=== PATIENT | female | born 2000 | race Caucasian/White ===

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

== ENCOUNTER 2022-06-18 19:39 | Inpatient (IN) | payer OTHER ==
[~2022-06-18] VITALS: Ht 162.6 cm; Wt 54.4 kg
--- NOTE | 2022-06-18 20:03 | NUR ---
PACIENTE ALERTA Y ACTIVA REFIERE ESTAR EMBARAZADA OSITO NO SABE DE CUANTAS SEMANAS Y ESTA [place].
--- NOTE | 2022-06-18 20:49 | NUR ---
PACIENTE EVALUADA POR DR HAMILTON QUI[place] [facility], SE LE ORIENTA A PACIENTE SOBRE EL MISMO Y VERBALIZA ENTENDER, SE LE COLECTA MUESTRAS BAJO MEDIDAS ASEPTICAS. PENDIENTE SONO
--- NOTE | 2022-06-18 21:01 | NUR ---
PACIENTE ALERTA Y ORIENTADA POR LISHA. SE ORIENTA DE TRATAMIENTO. REFIERE ENTENDER. SE CANALIZA CON MEDIDAS ASEPTICAS CORRESPONDIENTES.
--- NOTE | 2022-06-19 03:31 | NUR ---
PACIENTE CON ORDEN DE IR A CRISTI DE OPERACIONES POR EMBARAZO ECTOPICO. ORDEN DE DR. TOLEDO CUAL REFIERE EL PROCEDIMIENTO SERA DESPUES DE LAS 7AM. PACIENTE SE LE REALIZA ADMINISTRACION DE TERAPIA INTRAVENOSA DE R/L 1000ML BAJANDO A 125ML/HRS, SE TOMARON MUESTRAS DE GISELA BAJO MEDIDAS ASEPTICAS. SE REALIZO PRUEBA DE COVID 19AG, SE ORIENTO SOBRE ORDEN DE NPO, SE REEALIZO MUESTRA DE TIPO Y ROCKY. PACIENTE SE MANTIENE EN OBSERVACION EN ESPERA DE OR.
[2022-06-20] MEDS ORDERED: RHOGAM ULTR1500 UNIT IM (07:31)
[2022-06-21] MEDS ORDERED: IBUPROFEN800 MG PO (08:20)
== END 2022-06-21 13:45 | disposition home or self-care (01) | DRG 819 ==
LOC: ER 19:39 → OB/GYN 06-19 03:35 → SEC-K 06-19 03:35 → OB/GYN 06-19 11:45
PROVIDERS: ADMIT Specialist; ATTEND Specialist
PROC: 0UDB7ZZ Extraction of Endometrium, Via Natural or Artificial Opening (ICD-10-PCS; 2022-06-19)
PROC: 10T20ZZ Resection of Products of Conception, Ectopic, Open Approach (ICD-10-PCS; principal; 2022-06-19 09:00)
DX: O00.102 Left tubal pregnancy without intrauterine pregnancy (principal); Z20.822 Contact with and (suspected) exposure to COVID-19

== ENCOUNTER 2022-09-29 16:35 | Emergency (ER) | payer OTHER ==
[~2022-09-29] VITALS: Ht 162.6 cm; Wt 52.2 kg
[~2022-09-29 16:35] MED LIST changes: +IBUPROFEN800 MG PO
== END 2022-09-29 19:12 | disposition home or self-care (01) ==
LOC: EMR PED 16:35 → ER 16:36 → EMR PED 16:36 → ER 19:12
DX: J03.90 Acute tonsillitis, unspecified (principal); R53.81 Other malaise

== ENCOUNTER 2022-11-01 18:17 | Emergency (ER) | payer OTHER ==
[~2022-11-01] VITALS: Ht 162.6 cm; Wt 52.2 kg
== END 2022-11-01 20:23 | disposition home or self-care (01) ==
LOC: ER 18:17
DX: J10.1 Influenza due to other identified influenza virus with other respiratory manifestations (principal); Z20.822 Contact with and (suspected) exposure to COVID-19

== ENCOUNTER 2024-04-10 19:00 | Emergency (ER) | payer OTHER ==
[~2024-04-10] VITALS: Ht 162.6 cm; Wt 54.4 kg
[2024-04-10 19:13] VITALS: BP 107/67; O2SAT 100
[2024-04-10 23:20] LABS: PH,URINE 5.5 (5.0-8.0); URINE APPEARANCE Clear; URINE BILIRRUBIN Negative (NEGATIVE); URINE BLOOD Negative; URINE COLOR Yellow; URINE GLUCOSE Negative (NEGATIVE); URINE KETONE Trace (NEGATIVE); URINE LEUKOCYTE Negative; URINE NITRATE Negative; URINE PROTEIN Negative (NEGATIVE); URINE UROBILINOGEN 0.2 E.U./dl
[2024-04-10 23:24] LABS: URINE BACTERIA 3348.6 uL (0.0-1933); URINE EPITHELIAL CELLS 66.9 uL (0.0-38.8); URINE WBC 12.8 uL (0.0-23.2)
[2024-04-10 23:34] LABS: URINE CAST 0.29 uL (0.0-1.40); URINE RBC 1.7 uL (0.0-20.8)
== END 2024-04-10 23:03 | disposition left against medical advice (07) ==
LOC: ER 19:02
PROVIDERS: Emergency Medicine
DX: R10.2 Pelvic and perineal pain (principal)

== ENCOUNTER 2024-04-11 11:52 | Emergency (ER) | payer OTHER ==
[~2024-04-11] VITALS: Ht 162.6 cm; Wt 54.4 kg
[2024-04-11 14:35] LABS: PH,URINE 6.5 (5.0-8.0); URINE APPEARANCE Clear; URINE BILIRRUBIN Negative (NEGATIVE); URINE BLOOD Small; URINE COLOR Yellow; URINE GLUCOSE Negative (NEGATIVE); URINE LEUKOCYTE Negative; URINE NITRATE Negative; URINE PROTEIN Trace (NEGATIVE)
[2024-04-11 14:37] LABS: HEMATOCRIT 36.1 % (36.0-45.00); HEMOGLOBIN 12.5 g/dL (12.0-15.00); MEAN CELL VOLUME 85.6 fL (80.00-100.00); MEAN CORPUSCULAR HEMOGLOBIN 29.7 pg (27.00-32.0); MEAN CORPUSCULAR HGB CONC 34.7 g/dl (32.0-36.0); PLATELET COUNT 247 K/uL (150-450); RED BLOOD COUNT 4.21 M/uL (4.00-6.00); RED CELL DISTRIBUTION WIDTH 13.3 % (11.5-14.5)
[2024-04-11 14:39] LABS: URINE BACTERIA 3773.3 uL (0.0-1933); URINE CAST 1.91 uL (0.0-1.40); URINE EPITHELIAL CELLS 61.4 uL (0.0-38.8); URINE WBC 36.4 uL (0.0-23.2)
[2024-04-11 14:55] LABS: URINE KETONE 80 (NEGATIVE)
[2024-04-11 14:56] LABS: URINE MUCUS HEAVY
== END 2024-04-11 16:37 | disposition home or self-care (01) ==
LOC: ER 11:54
PROVIDERS: Emergency Medicine
DX: N93.9 Abnormal uterine and vaginal bleeding, unspecified (principal)

== ENCOUNTER 2024-09-24 22:50 | Emergency (ER) | payer OTHER ==
[~2024-09-24] VITALS: Ht 162.6 cm; Wt 59.0 kg
[2024-09-24] MEDS ORDERED: PRENATABS RX T1 EACH (23:09)
[2024-09-25] MEDS ORDERED: ACETAMINOPHEN 500 MG GEL..CAP PO STA (02:06)
[2024-09-25] MEDS ORDERED: DIPHENHYDRAMINE HCL 12.5 MG/5 ML BLIST.PACK PO STA (02:06)
[2024-09-25 02:46] LABS: COVID-19 AG POSITIVE (NEGATIVE)
[2024-09-25 03:08] LABS: BASO % 0.1 % (0.1-1.2); EOS # 0.02 (0.04-0.54); EOS % 0.3 % (0.7-7.0); LYMPH # 0.48 (1.18-3.74); LYMPH % 7.1 % (19.3-53.1); MEAN PLATELET VOLUME 9.90 fl (9.4-12.4); MONO # 0.46 (0.24-0.82); MONO % 6.8 % (4.7-12.5); NEUT # 5.78 (1.56-6.13); NEUT % 85.3 % (34.0-71.1); RED CELL DISTRIBUTION WIDTH 12.9 % (11.6-14.4)
[2024-09-25] MEDS ORDERED: ZYRTEC10 M3 PO (03:20)
== END 2024-09-25 04:11 ==
LOC: ER 22:50
PROVIDERS: General Practice
DX: Z34.90 Encounter for supervision of normal pregnancy, unspecified, unspecified trimester (principal); Z3A.17 17 weeks gestation of pregnancy; U07.1 COVID-19; R50.9 Fever, unspecified; R51.9 Headache, unspecified

== ENCOUNTER 2024-10-17 14:38 | Outpatient (CLI) | payer OTHER ==
[~2024-10-17 14:38] MED LIST changes: -ANUSOL-HC30 G2 RECTAL
[2024-10-17] MEDS ORDERED: IBUPROFEN800 MG PO (16:00)
[2024-10-17] MEDS ORDERED: ANUSOL-HC30 G2 RECTAL ×2 (16:00)
[2024-10-17 16:08] VITALS: BP 105/65
[2024-10-17 16:14] VITALS: BP 105/65
[2024-10-17 16:56] LABS: BASO % 0.3 % (0.1-1.2); EOS # 0.03 (0.04-0.54); EOS % 0.4 % (0.7-7.0); LYMPH # 0.68 (1.18-3.74); LYMPH % 9.2 % (19.3-53.1); MEAN PLATELET VOLUME 10.20 fl (9.4-12.4); MONO # 0.44 (0.24-0.82); MONO % 5.9 % (4.7-12.5); NEUT # 6.24 (1.56-6.13); NEUT % 83.9 % (34.0-71.1); RED CELL DISTRIBUTION WIDTH 12.9 % (11.6-14.4)
[2024-10-17] MEDS ORDERED: HYDROCORTISONE 2.5% 30 GM TUBE RECTAL SCH (17:00)
[2024-10-17 17:20] VITALS: BP 105/65
== END 2024-10-17 17:27 | disposition home or self-care (01) ==
LOC: OBS/DEL 14:38 → LDR 16:19 → OBS/DEL 17:27
PROVIDERS: ATTEND Specialist
DX: O26.892 Other specified pregnancy related conditions, second trimester (principal); O22.42 Hemorrhoids in pregnancy, second trimester; Z3A.20 20 weeks gestation of pregnancy

== ENCOUNTER → 2024-10-17 | Emergency (ER) | payer OTHER ==
[~2024-10-17] MED LIST changes: +ANUSOL-HC30 G2 RECTAL; +PRENATABS RX T1 EACH; +ZYRTEC10 M3 PO
== END | disposition left against medical advice (07) ==
LOC: ER 14:11
DX: Z53.21 Procedure and treatment not carried out due to patient leaving prior to being seen by health care provider (principal)

== ENCOUNTER 2025-02-11 15:00 | Inpatient (IN) | payer OTHER ==
[~2025-02-11] VITALS: Ht 162.6 cm; Wt 71.7 kg
[~2025-02-11 15:00] MED LIST changes: +ANUSOL-HC30 G2 RECTAL
[2025-03-06] MEDS ORDERED: RINGERS SOLUTION,LACTATED 1,000 ML IV SCH (05:30)
[2025-03-06 05:34] VITALS: BP 101/59
[2025-03-06] MEDS ORDERED: OXYTOCIN 500 ML IV SCH (06:45)
[2025-03-06 07:00] LABS: URINE APPEARANCE Clear; URINE BILIRRUBIN Negative (NEGATIVE); URINE BLOOD Negative; URINE COLOR Yellow; URINE GLUCOSE Negative (NEGATIVE); URINE KETONE Trace (NEGATIVE); URINE LEUKOCYTE Small; URINE NITRATE Negative; URINE PROTEIN Trace (NEGATIVE); URINE UROBILINOGEN 1.0 E.U./dl
[2025-03-06 07:01] LABS: BASO % 0.3 % (0.1-1.2); EOS # 0.09 (0.04-0.54); EOS % 1.1 % (0.7-7.0); LYMPH # 1.89 (1.18-3.74); LYMPH % 24.1 % (19.3-53.1); MEAN PLATELET VOLUME 10.10 fl (9.4-12.4); MONO # 0.70 (0.24-0.82); MONO % 8.9 % (4.7-12.5); NEUT # 5.11 (1.56-6.13); NEUT % 65.1 % (34.0-71.1); RED CELL DISTRIBUTION WIDTH 13.6 % (11.6-14.4)
[2025-03-06 07:03] LABS: URINE BACTERIA 613.1 uL (0.0-1933); URINE EPITHELIAL CELLS 79.0 uL (0.0-38.8); URINE WBC 40.7 uL (0.0-23.2)
[2025-03-06 07:11] LABS: INR < 0.93
[2025-03-06 07:18] LABS: URINE CAST 0.14 uL (0.0-1.40); URINE RBC 1.2 uL (0.0-20.8)
[2025-03-06 07:35] VITALS: BP 111/51
[2025-03-06 07:36] LABS: ALT/SGPT 25.0 U/L (12-78); AST/SGOT 25.0 U/L (15-37); BILIRUBIN TOTAL 0.56 mg/dL (0.3-1.2); BUN CREA RATIO 13.0 (7.0-25.0); CREATININE SERUM 0.4 mg/dL (0.55-1.02); GFR 199.59; GLOBULINA 3.6 G/DL (2.4-3.5); GLUCOSE FASTING 76.0 mg/dL (65-100); OSMOLALITY SERUM 275.0 MOSM/KG (275-295)
[2025-03-06] MEDS ORDERED: MORPHINE SULFATE 4 MG/ML VIAL IV STA (08:08)
[2025-03-06 08:37] VITALS: BP 111/51
[2025-03-06] MEDS ORDERED: CHLORHEXIDINE GLUCONATE 120 ML BOTTLE TOP ONE ×2 (10:52→11:45)
[2025-03-06] MEDS ORDERED: ERYTHROMYCIN BASE OPHT 1GM EACH TUBE OP ONE ×2 (10:52→11:45)
[2025-03-06] MEDS ORDERED: OXYTOCIN 20 UNITS/1000ML RL PIGGYBAG IV ONE (10:52)
[2025-03-06] MEDS ORDERED: LIDOCAINE HCL 1% 10ML VIAL ONE (10:52)
[2025-03-06] MEDS ORDERED: ACETAMINOPHEN 500 MG GEL..CAP PO PRN (11:45)
[2025-03-06] MEDS ORDERED: OXYTOCIN 1,000 ML IV SCH (11:45)
[2025-03-06] MEDS ORDERED: HYDROCORTISONE 2.5% 30 GM TUBE RECTAL SCH (13:00)
[2025-03-06] MEDS ORDERED: BENZOCAINE/MENTHOL 90 ML BOTTLE TOP SCH (13:00)
[2025-03-06 15:28] VITALS: BP 126/78
[2025-03-06 16:00] VITALS: BP 96/46
[2025-03-06 17:13] VITALS: BP 105/69
[2025-03-07 01:32] VITALS: BP 103/68
[2025-03-07 01:34] LABS: BASO % 0.2 % (0.1-1.2); EOS # 0.04 (0.04-0.54); EOS % 0.3 % (0.7-7.0); LYMPH # 1.63 (1.18-3.74); LYMPH % 13.1 % (19.3-53.1); MEAN PLATELET VOLUME 10.00 fl (9.4-12.4); MONO # 1.02 (0.24-0.82); MONO % 8.2 % (4.7-12.5); NEUT # 9.70 (1.56-6.13); NEUT % 77.7 % (34.0-71.1); RED CELL DISTRIBUTION WIDTH 13.6 % (11.6-14.4)
[2025-03-07 08:00] VITALS: BP 104/72
[2025-03-07 19:30] VITALS: BP 106/72
[2025-03-08] VITALS: BP 95/65
[2025-03-08 08:19] VITALS: BP 91/60
[2025-03-08] MEDS ORDERED: FF) RHO(D) IMMUNE GLOBULIN (POM) IM ONE (11:15)
== END 2025-03-08 17:42 | disposition home or self-care (01) | DRG 807 ==
LOC: OB/GYN 03-04 15:00 → LDR 03-06 05:19 → OB/GYN 03-06 13:04
PROVIDERS: ADMIT Specialist; ATTEND Specialist
PROC: 10E0XZZ Delivery of Products of Conception, External Approach (ICD-10-PCS; principal; 2025-03-06)
PROC: 3E033VJ Introduction of Other Hormone into Peripheral Vein, Percutaneous Approach (ICD-10-PCS; 2025-03-06)
PROC: 4A1HXCZ Monitoring of Products of Conception, Cardiac Rate, External Approach (ICD-10-PCS; 2025-03-06)
DX: O80 Encounter for full-term uncomplicated delivery (principal); Z37.0 Single live birth; Z3A.39 39 weeks gestation of pregnancy